=== PATIENT | female | born 1930 | race Caucasian/White ===

== ENCOUNTER → 2017-03-29 | Outpatient (CLI) | payer MEDICARE, OTHER ==
[~2017-03-29] MED LIST: ACETAMINOPHEN PO; ACETAMINOPHEN500 M3 PO; ACID CONTROL150 M1 PO; ACTOS; ALBUTEROL17 GM INH; ALOE VESTA56 G1 TOP; AMBIEN; AMBIEN PO; AMBIEN10 MG PO; AMITRIPTYLINE H50 MG PO; AMITRYPTYLINE PO; AQUAPHOR EXT; ASPIRIN; ASPIRIN ENTERI325 M1 PO; ASPIRIN PO; ASPIRIN325 M1 PO; ATORVASTATIN CA10 MG PO; ATROVENT 0.03%30 ML; AUGMENTIN PO; B-121000 MC3 PO; B-COMPLEX WITH1 EACH PO; BAYER ASPIRIN325 M1 PO; BENZONATATE PO; BISACODYL10 MG/SUP3 PR; BUMETANIDE1 MG PO; BUMETANIDE2 M1 PO; BUMEX; CELEXA PO; CELEXA20 MG PO; CERTAGEN PO; CHLORASEPTIC177 M1 PO; CIPRO PO; CITALOPRAM HBR40 MG PO; CITRATE OF MAG296 M1; CLARITIN10 M2 PO; COLACE PO; CORRECTOL5 M2 PO; COUGH SYRU100 MG/5 M PO; COUMADIN5 MG PO; COUMADIN7.5 MG PO; CRANBERRY400 MG PO; CRESTOR; CRESTOR PO; CRESTOR10 MG; CRESTOR10 MG PO; CRESTOR5 MG PO; CYANOCOBALAM1000 MCG PO; DESYREL50 MG PO; DIAZEPAM PO; DOCUSATE SODIU100 MG PO; DURAGESIC TOP; DURAGESIC1 EACH TD; DURAGESIC25 MCG EXT; DURAGESIC25 MCG TD; ENEMA BAG1 EACH PR; FENTANYL TD; FENTANYL1 EAC1 TD; FENTANYL1 EAC1 TOP; FLEXERIL10 M1 PO; FLONASE ALLERG9.9 ML; FLOVENT DISKU100 MCG IH; FLOVENT HFA12 G1 INH; FLOVENT7.9 GM; FLUTICASONE PROPIONA INH; FUROSEMIDE40 MG PO; FUROSEMIDE80 MG PO; GLUCOTROL; HCTZ; HCTZ PO; HYDROCHLOROTHIA25 MG PO; HYDROCODON-ACE1 EAC5 PO; HYDROCODON-ACE1 EAC7 PO; HYDROCODON-ACE1 EACH; HYDROCODONE-APA1 T30; HYDROCODONE-APA1 T33; HYDROCODONE-APA1 T41 PO; HYDROCODONE-APA1 T55 PO; HYDROGESIC 5/501 CAP PO; IPRAT-ALBUT 0.5-3 ML INH; IPRATR-ALBUTEROL3 ML IH; JANUVIA PO; K-DUR20 ME1 PO; KCL PO; KLOR-CON PO; LACTULOSE10 G/15 M1 PO; LACTULOSE10 G/15 M4 PO; LANTUS100 U/ML; LANTUS100 U/ML SUBQ; LASIX; LASIX PO; LASIX20 MG PO; LEVAQUIN PO; LEVEMIR INJ; LEVEMIR SUBQ; LEVEMIR100 U/ML SUBQ; LEVEMIR100 UNITS/ SUBQ; LIPITOR PO; LOPRESSOR PO; LORTAB 10-3251 EACH PO; LORTAB 5/500 TA1 TA1 PO; MACROBID 100 M100 MG PO; MAG-OX 400400 M1 PO; MAGNESIUM400 MG PO; MAPAP500 M1 PO; MELATIN3 MG; MELATONIN1 MG PO; MELATONIN5 M1 PO; METOPROLOL SUCC25 MG; METOPROLOL TAR25 MG PO; METOPROLOL TART25 MG PO; MILK OF MAGNESIA PO; MIRALAX17 G2 PO; MUCINEX PO; MUCUS ER600 MG PO; MULTI VITAMIN1 EACH PO; MULTI-VITAMIN1 TAB; MYCOSTATIN POWD15 GM EXT; MYRBETRIQ50 MG PO; NEURONTIN PO; NEURONTIN300 MG PO; NORCO 10/325 TA1 TAB PO; NOVOLIN N100 UNIT/1; NOVOLIN N100 UNIT/1 SUBQ; NOVOLOG MIX 70/33 ML INJ; NOVOLOG100 U/M1 SQ; NOVOLOG100 U/M2; NOVOLOG100 U/ML; NOVOLOG100 U/ML INJ; NOVOLOG100 U/ML SUBQ; NOVOLOG100 UNITS/ SUBQ; NYSTATIN1 GM TD; NYSTATIN15 G1 TP; OMEPRAZOLE40 MG PO; ONDANSETRON ODT4 MG PO; ONE DAILY MULTI1 TA3 PO; OXYGEN INH; PANTOPRAZOLE SO40 MG PO; POLYETHYLENE GLYCOL PO; POLYGESIC 5/5001 CAP; POTASSIUM CHLO10 ME1 PO; PREDNISONE PO; PREDNISONE10 MG PO; PREDNISONE10 MG/DOSE PO; PREDNISONE5 MG PO; PREVACID; PREVACID PO; PRILOSEC PO; PROAIR HFA8.5 GM INH; PROMOD946 ML PO; PROTONIX; PROTONIX PO; ROBAFEN100 MG/5 M PO; SENNA8.6 M1 PO; SENNA8.6 M3 PO; TIZANIDINE HCL4 M1 PO; TRAZODONE; TRIAMTERENE-HCT1 TA6 PO; TRIMPEX100 MG PO; TYLENOL/CODEINE1 TAB PO; TYLENOL325 M1 PO; VICODIN; VICODIN 5/1 TAB 5/50 PO; VICODIN 5/500 T1 TAB; VITAMIN B-121000 MCG PO; VITAMIN B-COMPL1 CA1 PO; VITAMIN B12 PO; VITAMIN B12-FO1 EACH PO; VITAMIN B122500 MCG; VITAMIN D 4001 UDTAB; WARFARIN SODIUM PO; WARFARIN SODIUM4 M1 PO; ZANAFLEX PO; ZANAFLEX4 M1; ZANAFLEX4 M1 PO; ZANTAC150 MG PO; ZITHROMAX PO; ZOFRAN PO; ZYVOX600 MG PO; [UNRECOGNIZED DRUG - OTHER] TOP
--- NOTE | ~2017-03-29 | EKG ---
PATIENT: EMILIANO WONG UNIT #: [id number] Ventricular Rate: 71 BPM Atrial Rate: 71 BPM P-R Interval: 244 ms QRS Duration: 88 ms Q-T Interval: 422 ms QTC Calculation(Bezet): 458 ms P [place]: 45 degrees Calculated R [place]: 55 degrees Calculated T [place]: 59 degrees Diagnosis Line: Sinus rhythm with 1st degree A-V block Diagnosis Line: Poor R wave progression questionable lead position Diagnosis Line: or body habitus Baseline wander Diagnosis Line: Abnormal ECG Diagnosis Line: When compared with ECG of 22-MAR-2016 06:06, Diagnosis Line: ST elevation now present in Inferior leads Diagnosis Line: Confirmed by BINDU LOGAN MD ([id number]) on 04/01/2017 Diagnosis Line: 1:49:13 PM INTERPRETING MD: DESMOND CABAN
[2017-03-29 13:27] LABS: HEMATOCRIT 35.9 % (35.0-45.0); MEAN CELL VOLUME 93.2 FL (83-96); MEAN CORPUSCULAR HEMOGLOBIN 31.2 PG (28-34); MEAN CORPUSCULAR HGB CONC 33.5 g/dL (30-36); MEAN PLATELET VOLUME 7.9 FL (6.5-11.5); RED BLOOD COUNT 3.86 X10e (3.90-5.30); WHITE BLOOD COUNT 8.7 X10e3 (4.0-10.5)
[2017-03-29 15:19] LABS: ALBUMIN SERUM 3.5 g/dL (3.5-5.0); BILIRUBIN,TOTAL 0.2 mg/dL (0.2-2.0); BUN/CREATININE RATIO 26.25; CALCIUM SERUM 9.6 mg/dL (8.4-10.2); CREATININE SERUM 0.8 mg/dL (0.6-1.4); GLOM FILT RATE Estimated 67.8 mL/min (>60); POTASSIUM 3.7 mmol/L (3.5-5.1); PROTEIN TOTAL SERUM 6.9 g/dL (6.0-8.3)
== END | disposition home or self-care (01) ==
LOC: CAMB 12:06
PROVIDERS: Orthopaedic Surgery
DX: Z01.818 Encounter for other preprocedural examination (principal); T84.038A Mechanical loosening of other internal prosthetic joint, initial encounter
CPT/HCPCS: 36415; 80053; 85027; 85652; 86140; 87070; 93005